=== PATIENT | female | born 1965 | race Caucasian/White ===

== ENCOUNTER 2024-01-06 17:43 | Emergency (ER) | payer MEDICAID, OTHER ==
[~2024-01-06] VITALS: Ht 157.5 cm; Wt 61.1 kg
[~2024-01-06 17:43] MED LIST: AQUAOIN2 TOP; CYMBALTA PO; KEFL500C PO; KENALOG TOP; SIMV20TA2 OR; SOMA350T PO; VICO5TAB PO
[2024-01-06] MEDS: LIDOCAINE 5% (LIDODERM) PATCH TD ONE (20:43)
[2024-01-06] MEDS: IBUPROFEN 600MG TAB PO ONE (20:43)
[2024-01-06 20:55] VITALS: BP 140/75; TEMP 98.1; O2SAT 98
== END 2024-01-06 20:56 | disposition home or self-care (01) ==
LOC: M ED 17:43
DX: S43.402A Unspecified sprain of left shoulder joint, initial encounter (principal); Y92.019 Unspecified place in single-family (private) house as the place of occurrence of the external cause; Y93.9 Activity, unspecified; Y99.9 Unspecified external cause status; F17.210 Nicotine dependence, cigarettes, uncomplicated; Z88.1 Allergy status to other antibiotic agents; Z79.1 Long term (current) use of non-steroidal anti-inflammatories (NSAID); Z79.2 Long term (current) use of antibiotics